=== PATIENT | female | born 1955 | race Caucasian/White ===

== ENCOUNTER 2019-01-24 06:48 | Emergency (ER) | payer BC ==
[2019-01-24] MEDS ORDERED: diPHENhydraMINE PO* 50 MG PO ONE (07:08)
--- NOTE | 2019-01-24 07:09 | ED ---
Skin Complaint - HPI Summary HPI Summary: A 63 y/o female presents to [facility] with a chief complaint of a body rash since last night. 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 She reports that before this she was taking herbal products. She claims that she will start doxycycline soon. She denies any SOB, throat tightening or difficulty swallowing. At triage she rated her pain as a 0/10 in severity. She claims that [employer] her blood pressure was low. At triage her blood pressure was 110/55. - History of Current Complaint Chief Complaint: EDAllergicReaction Time Seen by Provider: 01/24/19 06:59 Stated Complaint: POSS ALLERGIC REACTION PER PT Hx Obtained From: Patient Onset/Duration: Started Hours Ago, Still Present Skin Exposure Onset/Duration: Hours Ago Timing: Constant, Lasting Hours Onset Severity: Mild Current Severity: Mild Pain Intensity: 0 Pain Scale Used: 0-10 Numeric Skin Location: Diffuse Character: Redness Aggravating Symptom(s): Nothing Alleviating Symptom(s): Nothing Associated Signs & Symptoms: Negative - throat tightening, difficulty swallowing , SOB - Allergy/Home Medications Allergies/Adverse Reactions: Allergies Allergy/AdvReac Type Severity Reaction Status Date / Time Sulfa (Sulfonamide Allergy Intermediate Rash Verified 01/24/19 07:20 Antibiotics) cephalexin [From Keflex] AdvReac Mild Rash Verified 01/24/19 06:56 PMH/Surg Hx/FS Hx/Imm Hx Endocrine/Hematology History: Denies: Hx Diabetes Cardiovascular History: Reports: Hx Hypertension - CONTROLLED WITH DAILY MEDS Denies: Hx Pacemaker/ICD History: Denies: Hx Renal Disease Musculoskeletal History: Denies: Hx Osteoporosis Sensory History: Reports: Hx Contacts or Glasses - reading Denies: Hx Hearing Aid Opthamlomology History: Reports: Hx Contacts or Glasses - reading Psychiatric History: Denies: Hx Panic Disorder - Cancer History Cancer Type, Location and Year: BREAST Hx Chemotherapy: No Hx Radiation Therapy: No - Surgical History Surgery Procedure, Year, and Place: Bilateral ear Sx. Hx Anesthesia Reactions: No Infectious Disease History: No Infectious Disease History: Denies: Traveled Outside the [place] in Last 30 Days - Family History Known Family History: Positive: Cardiac Disease, Diabetes - Social History Lives: With Family Alcohol Use: Daily Alcohol Amount: 2 GLASS WINE/NIGHT Substance Use Type: Reports: None Smoking Status (MU): Former Smoker Type: Cigarettes Amount Used/How Often: 1PPD 35 YRS Have You Smoked in the Last Year: No Review of Systems Negative: Fever ENT: Negative - throat tightening, difficulty swallowing Negative: Shortness Of Breath Positive: Rash All Other Systems Reviewed And Are Negative: Yes Physical Exam - Summary Physical Exam Summary: Appearance: The patient is well-nourished in no acute distress and in no acute pain. Skin: Diffuse erythematous blanching rash. HEENT: The head is normocephalic and atraumatic. The pupils are equal and reactive. The conjunctivae are clear and without drainage. Nares are patent and without drainage. Mouth reveals moist mucous membranes and the throat is without erythema and exudate. The external ears are intact. The ear canals are patent and without drainage. The tympanic membranes are intact. Neck: The neck is supple with full range of motion and non-tender. There are no carotid bruits. There is no neck vein distension. Respiratory: Chest is non-tender. Lungs are clear to auscultation and breath sounds are symmetrical and equal. Cardiovascular: Heart is regular rate and rhythm. There is no murmur or rub auscultated. There is no peripheral edema and pulses are symmetrical and equal. Abdomen: The abdomen is soft and non-tender. There are normal bowel sounds heard in all four quadrants and there is no organomegaly palpated. Musculoskeletal: There is no back tenderness noted. Extremities are non-tender with full range of motion. There is good capillary refill. There is no peripheral edema or calf tenderness elicited. Neurological: Patient is alert and oriented to person, place and time. The patient has symmetrical motor strength in all four extremities. Cranial nerves are grossly intact. Deep tendon reflexes are symmetrical and equal in all four extremities. Psychiatric: The patient has an appropriate affect and does not exhibit any anxiety or depression. Triage Information Reviewed: Yes Vital Signs On Initial Exam: Initial Vitals Temp Pulse Resp BP Pulse Ox 98.9 F 85 16 110/55 95 01/24/19 06:52 01/24/19 06:52 01/24/19 06:52 01/24/19 06:52 01/24/19 06:52 Vital Signs Reviewed: Yes Diagnostics - Vital Signs Vital Signs Temp Pulse Resp BP Pulse Ox 01/24/19 06:52 98.9 F 85 16 110/55 95 - Laboratory Lab Statement: Any lab studies that have been ordered have been reviewed, and results considered in the medical decision making process. Course/Dx - Diagnoses Provider Diagnoses: Medication reaction Discharge - Sign-Out/Discharge Documenting (check all that apply): Patient Departure - DC Patient Received Moderate/Deep Sedation with Procedure: No - Discharge Plan Condition: Stable Disposition: HOME Referrals: Kelli Medrano MD [Primary Care Provider] - (2-3 days) Additional Instructions: Recommend Benadryl. Return to the ED if you experience any new or worsening symptoms. - Attestation Statements Document Initiated by Scribe: Yes Documenting Scribe: Martell Medel Provider For Whom Scribe is Documenting (Include Credential): Nixon Clay MD Scribe Attestation: IMartell, scribed for Nixon Clay MD on 01/24/19 at 0721. Status of Scribe Document: Ready
[2019-01-24 07:36] VITALS: BP 111/52
== END 2019-01-24 07:40 | disposition home or self-care (01) ==
LOC: ED 06:48
DX: L27.0 Generalized skin eruption due to drugs and medicaments taken internally (principal); T36.8X5A Adverse effect of other systemic antibiotics, initial encounter; Y92.9 Unspecified place or not applicable; I10 Essential (primary) hypertension; Z88.1 Allergy status to other antibiotic agents; Z88.2 Allergy status to sulfonamides; Z87.891 Personal history of nicotine dependence
CPT/HCPCS: 99281; A9270-GY